=== PATIENT | female | born 1985 | race Caucasian/White ===

== ENCOUNTER → 2022-08-27 11:50 | Outpatient (CLI) | payer OTHER, SELFPAY ==
[2022-08-27 13:07] LABS: Add Manual Diff / Slide Review NO; Basophils Absolute Auto 100 /uL (0-100); Basophils Percent Auto 0.8 % (0-2); Eosinophils Absolute Auto 200 /uL (0-450); Eosinophils Percent Auto 1.8 % (2-4); Hematocrit 38.3 % (36-46); Hemoglobin 13.5 g/dL (12.0-16.0); Lymphocytes Absolute Auto 3100 /uL (1100-4500); Lymphocytes Percent Auto 27.1 % (25-40); Mean Corpuscular HGB Conc 35.1 % (30-36); Mean Corpuscular Hemoglobin 31.9 PG (26-34); Mean Corpuscular Volume 90.9 fL (80-100); Monocytes Absolute Auto 600 /uL (0-900); Monocytes Percent Auto 5.2 % (3-14); Neutrophils Absolute Auto 7500 /uL (1500-7000); Neutrophils Percent Auto 65.1 % (50-75); Platelet Count 367 X10^3/uL (150-400); Red Blood Cell Count 4.21 X10^6/uL (4.0-5.2); Red Cell Distribution Width 12.2 % (11.6-14.8); White Blood Cell Count 11.5 X10^3/uL (4.5-11.0)
[2022-08-27 13:19] LABS: Specimen Label NATERA
[2022-08-27 17:38] LABS: Hepatitis B Surface Antigen NEGATIVE s/c (NEGATIVE); Rubella Antibody IgG 60.4 IU/mL (>15)
[2022-08-27 17:53] LABS: HIV 1 & 2 Ab/Ag 4th Gen Combo NEGATIVE (NEGATIVE); Hep C Virus Ab w/Reflex Quant NEGATIVE s/c (NEGATIVE)
[2022-08-28 04:27] LABS: RPR Screen Non Reactive (Non Reactive)
[2022-08-28 09:09] LABS: Varicella IgG Antibody 261 index (Immune >165)
== END ==
PROVIDERS: Referring Provider Specialist; Visit Provider Specialist
DX: O09.521 Supervision of elderly multigravida, first trimester (principal); Z3A.00 Weeks of gestation of pregnancy not specified
CPT/HCPCS: 36415; 80055; 86787; 86803; 86850; 86900; 86901; 87086; 87389

== ENCOUNTER → 2022-10-20 14:33 | Outpatient (CLI) | payer OTHER, SELFPAY ==
[2022-10-23 19:36] LABS: AFP Value 38.2 ng/mL (.); Insulin Dep Diabetes No (.); OSBR Risk 1IN 10000 (.); Results Report (.); Test Results *Screen Negative* (.)
== END ==
PROVIDERS: Referring Provider Specialist; Visit Provider Specialist
DX: Z34.92 Encounter for supervision of normal pregnancy, unspecified, second trimester (principal); Z3A.18 18 weeks gestation of pregnancy
CPT/HCPCS: 36415; 82105

== ENCOUNTER → 2022-11-04 15:45 | Outpatient (CLI) | payer OTHER, SELFPAY ==
--- NOTE | 2022-11-04 15:46 | DI.US.S_ITS ---
PROCEDURE: US OB >= 14 WEEKS FETUS INDICATIONS: ANATOMY OUTSIDE/PRIOR DATING DATA: Last menstrual period (LMP): 06/16/2022 LMP-based estimated date of delivery (LIZBETH): 03/23/2023. First dating scan (date and location): 08/27/2022. Estimated date of delivery (LIZBETH) from first dating scan: 03/25/2023. TECHNIQUE: Real-time scanning was performed of the fetus, with image documentation and biometric measurements. COMPARISON: None. FINDINGS: General: A single living intrauterine gestation is present. Presentation: Breech. Placenta: Placental position is posterior , with low lying placenta 1.4 cm from the internal cervical os.. Amniotic fluid index: 11.5 cm, normal range is 5-24 cm. Single deepest vertical pocket is 4.3 cm. heart rate: 140 beats per minute. Maternal cervical canal: 3.7 cm long. Normal lower limit is 2.5 cm. biometrics: Biparietal diameter: 19 weeks 4 days Head circumference: 19 weeks 4 days Abdominal circumference: 19 weeks 5 days Femur length: 20 weeks 1 day Clinically estimated gestational age: 20 weeks 1 day Composite gestational age from present scan: 19 weeks 5 days Estimated weight and percentile: 33rd percentile Anatomic survey: Neuro: Ventricles are non-dilated at less than 10 mm. Cisterna magna is normal at 3-11 mm. Cerebellum is normal in size and morphology. Nuchal skin fold: Normal at less than 6 mm between 14-21 weeks gestational age. Face: Nose and lips, facial profile are normal. Spine: No evidence for spina bifida. Heart: 4-chambered heart is present, with normal ventricular outflow tracts. Diaphragm: Diaphragm is intact. Stomach: Left-sided stomach is present. Kidneys: No hydronephrosis. Normal is less than 5 mm in 2nd trimester, less than 7 mm in 3rd trimester. Cord: 2-vessel cord has orthotopic insertion. Bladder: Normal in size. Extremities: All 4 extremities identified. IMPRESSION: 1. Single living IUP redemonstrated and interval growth is normal. 2. 2 vessel cord; otherwise normal anatomy. 3. Low lying placenta. Recommend followup imaging for the above. We strive to produce accurate, complete, and clear reports of imaging services. To assist us in improving patient care, this report was composed using standard report templates and voice recognition software. Therefore, it may contain abnormal punctuation, insertions and/or omissions. Occasional wrong-word or sound-alike substitutions may occur. Though we review the report and make efforts to correct it, we do recommend that the report be read carefully in proper context to recognize any text inaccuracies. Dictated by: Domo MUNOZ Interpreted: Gabriel Holder MD on 11/04/2022 at 19:20 Transcribed by: SIDDHARTHA on 11/05/2022 at 8:07 Approved by: Gabriel Holder M.D. on 11/06/2022 at 8:19
== END ==
PROVIDERS: Referring Provider Specialist; Visit Provider Specialist
DX: O44.42 Low lying placenta NOS or without hemorrhage, second trimester (principal); Z3A.19 19 weeks gestation of pregnancy
CPT/HCPCS: 76811

== ENCOUNTER → 2022-12-22 09:26 | Outpatient (CLI) | payer OTHER, SELFPAY ==
[2022-12-22 11:41] LABS: GTT (PREG) 1 Hour PP 50gm Dose 158 mg/dL (76-139)
== END ==
PROVIDERS: Referring Provider Student in an Organized Health Care Education/Training Program; Visit Provider Student in an Organized Health Care Education/Training Program
DX: Z34.82 Encounter for supervision of other normal pregnancy, second trimester (principal); Z3A.26 26 weeks gestation of pregnancy
CPT/HCPCS: 36415; 82950; 85014; 85018

== ENCOUNTER → 2022-12-28 09:27 | Outpatient (CLI) | payer OTHER, SELFPAY ==
[2022-12-28 12:38] LABS: Glucose Tol Interp,Gestational INTERPRETATION
[2022-12-28 13:35] LABS: Glucose 2 Hour Gest 144 mg/dL (76-155)
[2022-12-28 14:24] LABS: Glucose 3 Hour Gest 148 mg/dL (76-140)
[2022-12-28 18:17] LABS: Glucose Fasting Gestational 88 mg/dL (76-95)
[2022-12-28 18:17] LABS: Glucose 1 Hour Gest 184 mg/dL (76-180)
== END ==
PROVIDERS: Referring Provider Student in an Organized Health Care Education/Training Program; Visit Provider Student in an Organized Health Care Education/Training Program
DX: O99.810 Abnormal glucose complicating pregnancy (principal)
CPT/HCPCS: 36415; 82951; 82952

== ENCOUNTER → 2023-01-27 09:34 | Outpatient (CLI) | payer OTHER, SELFPAY ==
--- NOTE | 2023-01-27 11:43 | DIAB.GDA ---
Addendum entered by Rosita Enrique 02/04/23 14:23: Called to review BG and see if any questions. LVM. Plans to f/u 1:1 next Original Note: Initial Gestational Diabetes Assessment Name: Marilyn Weinberg Date: 01/27/23 Time: 770-6030a Dx: Gestational Diabetes Provider: Esperanza LIZBETH: 03/23/22 Weeks: 32 Marilyn presents with partner, Franko for initial visit. Denies any personal or FH of DM or GDM. Reports cutting out soda x1 month. Has questions regarding pasta and cereal options/intake. High carb intake with some coffee beverage choices (40g+ per serving). Recently switched from sourdough bread to keto bread, which she does not enjoy. Diet Recall: 7am: cheese or 1-2 butter toast or sweetened cereal 9am; leftovers: steak with pasta x 0.5-1c R steak and 0.5c rice, 0.5c beans, veggies 2-3p: same or veggie straws 7-8p: same sn: nothing or toast or veggie straws Beverages: 2-3x 32oz water, zero sugar hydration, coffee sweetened Anthropometrics: Ht: 62-63 Wt: 197# 12/18 at OB Prepregnancy wt: 162# Physical Activity: Exercise ball stretches 1-2x per week Self-Monitoring Blood Glucose: Checking FBG and 2 hour pc. 02/13 elevated recent FBG and all but two in range postprandial readings. Attributes elevations to high carb intake. Date Pre Post Pre Post Pre Post HS 01/21 76 94 145 107 01/22 76 78 120 104 01/23 86 96 107 108 01/24 93 98 82 123 01/25 81 100 105 75 01/26 96 94 87 81 01/27 91 Diabetes Medications: None Pertinent Labs: screen 158 H 3hr: 88, 184H, 144, 148H Nutrition Rx: Carbohydrates: Meal: 45-60g lunch and dinner; 30g breakfast Snack: 15-30g Nutrition Diagnosis: Altered nutrition related lab value r/t GDM dx aeb recent OGTT Nutrition and food related knowledge deficit r/t new dx GDM aeb OGTT and pt report Physical inactivity r/t stage of change aeb pt report Intervention: This participant was very receptive. Provided appropriate educational handouts. Discussed the following topics: GDM pathophysiology and impact of hyperglycemia on mom and baby Risk for T2DM for mom and baby in the future Ways to reduce risk T2DM Plate Method, meal timing, carb counting, pairing macronutrients and spreading out CHO for better BG management Blood glucose goals (FBG: <95 and 2 hour <120 mg/dL); importance of checking 4x per day (FBG and pc) Impact of macronutrients on blood glucose Recommended servings for carbohydrates at meals and snacks Brainstormed appropriate meal plan based on her food preferences Reviewed OGTT labs Role of physical activity and following provider guidelines for safety Goals: Measure coffee creamer Have veggies at each meal Keep carbs to about 1c at meals Start walks Follow-up: JACK BURGESS follow-up in one week via messaging or phone and 2 weeks in person 1:1 Rosita Enrique RDN, JENIFER Certified Diabetes Care and Editor News T: [phone] F: [phone] [email or web address] Thank you for this referral
== END ==
PROVIDERS: Referring Provider Student in an Organized Health Care Education/Training Program; Visit Provider Student in an Organized Health Care Education/Training Program
DX: O24.410 Gestational diabetes mellitus in pregnancy, diet controlled (principal); Z3A.32 32 weeks gestation of pregnancy; Z71.3 Dietary counseling and surveillance
CPT/HCPCS: 97802

== ENCOUNTER → 2023-02-01 15:26 | Outpatient (CLI) | payer OTHER, SELFPAY ==
--- NOTE | 2023-02-01 15:28 | DI.US.S_ITS ---
PROCEDURE: US OB LIMITED INDICATIONS: GESTATIONAL DIABETES OUTSIDE/PRIOR DATING DATA: Last menstrual period (LMP): 06/16/2022. LMP-based estimated date of delivery (LIZBETH): 03/23/2023. First dating scan (date and location): 08/27/2022. Estimated date of delivery (LIZBETH) from first dating scan: 03/25/2023. The calculations are made using the clinical LIZBETH of 03/23/2023. TECHNIQUE: Real-time scanning was performed of the fetus, with image documentation and biometric measurements. Endovaginal scanning: Not performed COMPARISON: None. FINDINGS: General: A single living intrauterine gestation is present. Presentation: Vertex. Placenta: Placental position is right posterior , without previa. Amniotic fluid index: 10 cm, normal range is 5-24 cm. Single deepest vertical pocket is 5.4 cm. heart rate: 141 beats per minute. Maternal cervical canal: 3.2 cm long. Normal lower limit is 2.5 cm. biometrics: Biparietal diameter: 8.1 centimeters, 32 weeks 4 days Head circumference: 30.2 centimeters, 33 weeks 3 days Abdominal circumference: 28.5 centimeters, 32 weeks 4 days Femur length: 6.5 centimeters, 33 weeks 2 days Clinically estimated gestational age: 32 weeks 6 days Composite gestational age from present scan: 33 weeks 0 days Estimated weight and percentile: 2070 grams, 41st percentile Other: Not applicable. IMPRESSION: 1. Single live intrauterine consistent with 33 weeks 0 days. 2. Appropriate growth with estimated weight in the 41st percentile. 3. Inferior margin of placenta is now approximately 6 centimeters from the internal os. We strive to produce accurate, complete, and clear reports of imaging services. To assist us in improving patient care, this report was composed using standard report templates and voice recognition software. Therefore, it may contain abnormal punctuation, insertions and/or omissions. Occasional wrong-word or sound-alike substitutions may occur. Though we review the report and make efforts to correct it, we do recommend that the report be read carefully in proper context to recognize any text inaccuracies. Dictated by: Pramod Diez M.D. on 02/02/2023 at 9:19 Approved by: Pramod Diez M.D. on 02/02/2023 at 9:56
== END ==
PROVIDERS: Referring Provider Student in an Organized Health Care Education/Training Program; Visit Provider Student in an Organized Health Care Education/Training Program
DX: O24.410 Gestational diabetes mellitus in pregnancy, diet controlled (principal); O09.893 Supervision of other high risk pregnancies, third trimester; O99.213 Obesity complicating pregnancy, third trimester; Z3A.33 33 weeks gestation of pregnancy
CPT/HCPCS: 76815

== ENCOUNTER → 2023-02-08 08:59 | Outpatient (CLI) | payer OTHER, SELFPAY ==
--- NOTE | 2023-02-08 10:04 | DIAB.GDFU ---
Follow-up Gestational Diabetes Assessment Name: Marilyn Weinberg Provider: Esperanza LIZBETH: 03/23/22 Weeks: 34 Marilyn presents today for follow-up GDM visit. Reports most BG in goal with exception to high carb intake, which seems to occur more often at lunch time. Endorses keeping portions to about 1c for carbs at most meals. Incorporating veggies more often at meals, ie green beans. Also, adding fruit with protein as snacks, ie pb and apple. Avoiding starbucks sugar beverages right now. Measured coffee creamer, 2 tsp per cup. Has increased activity with walks since last visit. Reports leaking colostrum after getting out of shower. Bought collectors to have for baby for potential hypoglycemia. Provided contact info. Plans for one more after this one per report. Diet Recall: B: low carb bread, cheese, avocado, black coffee sn: half apple with pb L: half cup mac and cheese with spam and green beans sn: veggie straws D; 1c pasta with 3 meatballs Anthropometrics: Ht: 62-63 Wt: 197# 12/18 at OB Prepregnancy wt: 162# Physical Activity: walking 2x per week. Partner wants to start walking daily. Plans to do so. Self-Monitoring Blood Glucose: Checking FBG and 2 hour pc consistently. Some high lunch readings and 1 high dinner due to large portions, ie burrito or teriyaki chx with white rice and mac. Most hyperglycemia in the last two weeks is occurring at lunch. Date Pre Post Pre Post Pre Post HS 02/02 102 81 129 110 02/03 95 94 84 102 02/04 91 110 188 103 02/05 78 80 95 104 02/06 88 111 102 160 02/07 92 118 101 104 02/08 93 Diabetes Medications: None Pertinent Labs: screen 158 H 3hr: 88, 184H, 144, 148H Nutrition Rx: Carbohydrates: Meal: 45-60g lunch and dinner; 30g breakfast Snack: 15-30g Nutrition Diagnosis: Altered nutrition related lab value r/t GDM dx aeb recent OGTT Nutrition and food related knowledge deficit r/t new dx GDM aeb OGTT and pt report - improved Physical inactivity r/t stage of change aeb pt report- improved/in progress Excessive CHO intake r/t portions at eating out, especially lunch aeb diet recall and SMBG- new Intervention: This participant was very receptive. Provided appropriate educational handouts. Discussed the following topics: Recent blood sugar results and impact of food and hormones Discussed reduced portions at lunch and/or adding a walk after lunch Review of macronutrient recommendations during Benefits, resources, and nutrition for resources Reviewed risk of GDM with subsequent pregnancies recommendations for nutrition and physical activity recommendations for T2DM risk reduction OGTT at 6-12 weeks Checking blood sugars twice per week (goal: fasting <100 mg/dL and 2 hour pc <140 mg/dL) until 6 week check-up HgA1c q 1-3 years. Goals: Measure coffee creamer- met Have veggies at each meal- improved Keep carbs to about 1c at meals- improved/in progress Start walks- met If eating out/have higher CHO, walk after meal 10+ mins- new Start daily walks with partner safely- new Get 6 months HgA1c from PCP- new Follow-up: JACK BURGESS follow-up prn. Overall, Marilyn is managing BG well. Some high lunch readings, which we discussed. Encouraged her to call or message with questions or follow-up needs prn. She agreed to this plan. Rosita Enrique RDN, [facility] Certified Diabetes Care and Soaker Soda Worker T: [phone] F: [phone] [email or web address] Thank you for this referral
== END ==
PROVIDERS: Referring Provider Student in an Organized Health Care Education/Training Program; Visit Provider Student in an Organized Health Care Education/Training Program
DX: O24.419 Gestational diabetes mellitus in pregnancy, unspecified control (principal); Z3A.34 34 weeks gestation of pregnancy; Z71.3 Dietary counseling and surveillance
CPT/HCPCS: 97803

== ENCOUNTER → 2023-02-08 10:11 | Outpatient (CLI) | payer OTHER, SELFPAY | PROVIDERS: Visit Provider Obstetrics & Gynecology | DX: R82.998 Other abnormal findings in urine (principal); O24.419 Gestational diabetes mellitus in pregnancy, unspecified control; Z3A.34 34 weeks gestation of pregnancy; Z71.3 Dietary counseling and surveillance | CPT/HCPCS: 87086; 97803 ==

== ENCOUNTER → 2023-02-22 11:50 | Outpatient (CLI) | payer OTHER, SELFPAY ==
[2023-02-23 09:59] LABS: Strep Grp B PCR NEG for Grp B Strep
== END ==
PROVIDERS: Visit Provider Obstetrics & Gynecology
DX: Z34.83 Encounter for supervision of other normal pregnancy, third trimester (principal); Z3A.35 35 weeks gestation of pregnancy
CPT/HCPCS: 87653

== ENCOUNTER → 2023-03-02 10:55 | Outpatient (CLI) | payer OTHER, SELFPAY | PROVIDERS: Visit Provider Obstetrics & Gynecology | DX: R82.998 Other abnormal findings in urine (principal) | CPT/HCPCS: 87086 ==

== ENCOUNTER → 2023-03-08 13:32 | Outpatient (CLI) | payer OTHER, SELFPAY | PROVIDERS: Visit Provider Obstetrics & Gynecology | DX: R82.998 Other abnormal findings in urine (principal) | CPT/HCPCS: 87086 ==

== ENCOUNTER → 2023-03-15 10:13 | Outpatient (CLI) | payer OTHER, SELFPAY | PROVIDERS: Visit Provider Obstetrics & Gynecology | DX: R82.998 Other abnormal findings in urine (principal) | CPT/HCPCS: 87086 ==

== ENCOUNTER → 2023-12-20 08:29 | Outpatient (CLI) | payer OTHER, SELFPAY ==
--- NOTE | 2023-12-20 08:31 | DI.MRI.S_ITS ---
PROCEDURE: MR KNEE RT WO CON INDICATIONS: pain in right knee TECHNIQUE: Noncontrast sagittal PD fast spin echo and T2 fast spin echo with fat saturation, sagittal 3-D FLASH with fat saturation; coronal T1 spin echo and PD fast spin echo with fat saturation, and axial PD fast spin echo with fat saturation through the knee. COMPARISON: None. FINDINGS: Image quality: Excellent. Menisci: Subtle signal abnormality adjacent to posterior medial periphery of posterior horn medial meniscus with adjacent cystic area measures up to 8 x 4 mm in size concerning for subtle posterior medial meniscal tear with parameniscal cysts. The lateral meniscus is intact. The meniscal root ligaments appear intact. Cruciate ligaments: The anterior and posterior cruciate ligaments appear intact. Medial structures: The medial collateral ligament appears intact. Visualized portions of the pes anserinus tendons appear normal. No abnormal bursal fluid. Lateral structures: The lateral collateral ligament, long and short heads of the biceps femoris tendon appear intact. The popliteus tendon appears normal. Iliotibial band appears normal. Anterior structures: Distal quadriceps tendinosis at its superior patellar insertion is seen. The patellar tendon is intact.. Patellar alignment is normal. No femoral trochlear dysplasia or ventral trochlear prominence. No edema in the infrapatellar fat pad. Bones and cartilage: No bone marrow contusions or fractures. The cartilage of the medial and lateral femorotibial compartments appears normal in thickness. Moderate grade chondromalacia involving apex and medial facet of patella cartilage is seen. Joint space: There is small knee joint fluid. No Rodríguez's cyst. Normal appearing synovial plicae are incidentally noted. IMPRESSION: 1. 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 No marrow edema. No acute fracture or dislocation. Small joint effusion, no loose bodies. 2. Finding is concerning for subtle tear involving posterior and medial periphery of posterior horn medial meniscus with adjacent subcentimeter parameniscal cysts. No evidence of lateral meniscal tear. 3. Cruciate ligaments are intact. 4. Distal quadriceps tendinosis at its superior patellar insertion. Dictated by: Marco A Driver M.D. on 12/20/2023 at 13:00 Approved by: Marco A Driver M.D. on 12/20/2023 at 13:08
== END ==
LOC: MRI 08:30
DX: M22.41 Chondromalacia patellae, right knee (principal); M25.461 Effusion, right knee; M23.021 Cystic meniscus, posterior horn of medial meniscus, right knee; M25.561 Pain in right knee
CPT/HCPCS: 73721

== ENCOUNTER → 2024-06-25 15:21 | Outpatient (CLI) | payer OTHER, SELFPAY ==
[2024-06-25 22:10] LABS: Urine N gonorrhoeae NOT DETECTED
[2024-06-25 22:19] LABS: Urine Chlamydia NOT DETECTED
== END ==
LOC: LAB 15:22
PROVIDERS: Visit Provider Obstetrics & Gynecology
DX: Z11.3 Encounter for screening for infections with a predominantly sexual mode of transmission (principal); Z3A.01 Less than 8 weeks gestation of pregnancy
CPT/HCPCS: 87491; 87591

== ENCOUNTER → 2024-07-27 12:20 | Outpatient (CLI) | payer OTHER, SELFPAY ==
[2024-07-27 13:34] LABS: Natera Collection Specimen Collected
[2024-07-27 14:05] LABS: Add Manual Diff / Slide Review NO; Basophils Absolute Auto 0 /uL (0-100); Basophils Percent Auto 0.6 % (0-2); Eosinophils Absolute Auto 200 /uL (0-450); Eosinophils Percent Auto 2.8 % (2-4); Hematocrit 38.6 % (36-46); Hemoglobin 13.3 g/dL (12.0-16.0); Lymphocytes Absolute Auto 2700 /uL (1100-4500); Lymphocytes Percent Auto 31.4 % (25-40); Mean Corpuscular HGB Conc 34.3 % (30-36); Mean Corpuscular Hemoglobin 31.4 PG (26-34); Mean Corpuscular Volume 91.3 fL (80-100); Monocytes Absolute Auto 600 /uL (0-900); Monocytes Percent Auto 6.4 % (3-14); Neutrophils Absolute Auto 5100 /uL (1500-7000); Neutrophils Percent Auto 58.8 % (50-75); Platelet Count 316 X10^3/uL (150-400); Red Blood Cell Count 4.23 X10^6/uL (4.0-5.2); Red Cell Distribution Width 12.5 % (11.6-14.8); White Blood Cell Count 8.6 X10^3/uL (4.5-11.0)
[2024-07-27 14:18] LABS: Hemoglobin A1C% w Est Avg Glu 5.1 % (4.0-6.0)
[2024-07-28 14:59] LABS: Hepatitis B Surface Antigen NEGATIVE s/c (NEGATIVE); Rubella Antibody IgG 69.5 IU/mL (>15)
[2024-07-28 15:10] LABS: HIV 1 & 2 Ab/Ag 4th Gen Combo NEGATIVE (NEGATIVE); Hep C Virus Ab w/Reflex Quant NEGATIVE s/c (NEGATIVE)
[2024-07-29 09:36] LABS: Varicella IgG Antibody Reactive (Non Reactive)
== END ==
PROVIDERS: Referring Provider Obstetrics & Gynecology; Visit Provider Obstetrics & Gynecology
DX: O09.521 Supervision of elderly multigravida, first trimester (principal); O09.299 Supervision of pregnancy with other poor reproductive or obstetric history, unspecified trimester; Z3A.12 12 weeks gestation of pregnancy; Z86.32 Personal history of gestational diabetes
CPT/HCPCS: 36415; 80055; 83036; 86787; 86803; 86850; 86900; 86901; 87389

== ENCOUNTER → 2024-08-21 09:44 | Outpatient (CLI) | payer OTHER, SELFPAY ==
[2024-08-24 19:39] LABS: Gest Age on Col Date 15.0 weeks (.); OSBR Risk 1IN 10000 (.)
== END ==
PROVIDERS: Referring Provider Obstetrics & Gynecology; Visit Provider Obstetrics & Gynecology
DX: Z34.82 Encounter for supervision of other normal pregnancy, second trimester (principal); Z3A.15 15 weeks gestation of pregnancy
CPT/HCPCS: 36415; 82105

== ENCOUNTER → 2024-10-29 10:30 | Outpatient (CLI) | payer OTHER, SELFPAY ==
[2024-10-29 12:56] LABS: Hematocrit 34.4 % (36-46); Hemoglobin 12.1 g/dL (12.0-16.0)
[2024-10-29 13:02] LABS: GTT (PREG) 1 Hour PP 50gm Dose 118 mg/dL (76-139)
== END ==
PROVIDERS: Referring Provider Obstetrics & Gynecology; Visit Provider Obstetrics & Gynecology
DX: Z34.82 Encounter for supervision of other normal pregnancy, second trimester (principal); Z3A.24 24 weeks gestation of pregnancy; Z34.90 Encounter for supervision of normal pregnancy, unspecified, unspecified trimester
CPT/HCPCS: 36415; 82950; 85014; 85018; 87077; 87086

== ENCOUNTER → 2024-12-10 08:34 | Outpatient (CLI) | payer OTHER, SELFPAY ==
--- NOTE | 2024-12-10 08:35 | DI.US.S_ITS ---
PROCEDURE: US OB FOLLOW UP INDICATIONS: previous Low lying placenta- reassess for resolution OUTSIDE/PRIOR DATING DATA: Last menstrual period (LMP): 05/04/2024. LMP-based estimated date of delivery (LIZBETH): 02/06/2025. First dating scan (date and location): 06/25/2024. Estimated date of delivery (LIZBETH) from first dating scan: 02/06/2025. TECHNIQUE: Real-time scanning was performed of the fetus, with image documentation and biometric measurements. Endovaginal scanning: Not performed. COMPARISON: [facility], , OB >= 14 WEEKS FETUS, 09/27/2024, 8:39. FINDINGS: General: A single living intrauterine gestation is present. Presentation: Breech position. Placenta: Placental position is posterior fundal , without previa. Normal >2 cm. Low lying is <2 cm to the edge. Previa covers the internal os. Amniotic fluid index: 13.6 cm, normal range is 5-24 cm. Single deepest vertical pocket is 4.7 cm. heart rate: 141 beats per minute. Maternal cervical canal: 3.9 cm long. Normal lower limit is 2.5 cm. Report any funneling of internal cervical os: % of canal length, shape (U or V), width or any U-shaped funneling. biometrics: Not performed. Other: Not applicable. IMPRESSION: Central intra area in in the breech position. heart rate of 141 beats per minute. BENEDICTO of 13.6 cm. Posterior fundal placenta without evidence of previa on the current study. No biometry was performed. We strive to produce accurate, complete, and clear reports of imaging services. To assist us in improving patient care, this report was composed using standard report templates and voice recognition software. Therefore, it may contain abnormal punctuation, insertions and/or omissions. Occasional wrong-word or sound-alike substitutions may occur. Though we review the report and make efforts to correct it, we do recommend that the report be read carefully in proper context to recognize any text inaccuracies. Dictated by: Daiana Don M.D. on 12/10/2024 at 10:59 Approved by: Daiana Don M.D. on 12/10/2024 at 11:06
== END ==
LOC: US 08:34
PROVIDERS: Referring Provider Obstetrics & Gynecology; Visit Provider Obstetrics & Gynecology
DX: O44.43 Low lying placenta NOS or without hemorrhage, third trimester (principal); O34.219 Maternal care for unspecified type scar from previous cesarean delivery; Z3A.28 28 weeks gestation of pregnancy
CPT/HCPCS: 76816

== ENCOUNTER → 2025-01-11 09:55 | Outpatient (CLI) | payer OTHER, SELFPAY ==
[2025-01-12 11:53] LABS: Strep Grp B PCR NEG for Grp B Strep
== END ==
PROVIDERS: Visit Provider Obstetrics & Gynecology
DX: Z36.85 Encounter for antenatal screening for Streptococcus B (principal)
CPT/HCPCS: 87653

== ENCOUNTER 2025-02-04 09:52 | Inpatient (IN) | payer OTHER, SELFPAY ==
--- NOTE | 2025-02-04 | PATH_ITS ---
[facility] Accession Number: [id number] No. of containers..01 Tissue . 01 Material submitted: . fallopian tube - BILATERAL FALLOPIAN TUBES . 01 Diagnosis: BILATERAL FALLOPIAN TUBES, BILATERAL SALPINGECTOMY: Fimbriated fallopian tubes with rare benign paratubal cyst, otherwise unremarkable, full cross sections. Negative for malignancy. [facility] 02/06/2025 1547 Local . 01 Electronically signed: . Mary Galvan DO, Pathologist NPI- [id number] . 01 Gross description: . Received in formalin with two patient identifiers and bilateral fallopian tubes, are bilateral undesignated fallopian tubes. The first fallopian tube is 7.5 cm long by 0.5 cm in diameter. The second fallopian tube is 9.8 cm long by 0.6 cm in diameter. The serosa is brown and dusky. The cut surfaces are congested with pinpoint lumens. There is a separate 0.9 cm paratubal cyst within the container. Teacher Asst sections are submitted as follows: A1: First fallopian tube with entire bisected fimbriated end and entire separate paratubal cyst. B2: Second fallopian tube with entire bisected fimbriated end. ([id number]) /KATYA 02/05/2025 0838 Local . 01 Pathologist provided ICD-10: O34.219 . 01 CPT . 812432 Specimen Comment: A courtesy copy of this report has been sent to [facility] Pathology Performed at: [address] [id number] MD Jerry Jack MD Phone: [phone]
--- NOTE | 2025-02-04 08:51 | PM.OBHP.IH.1 ---
OB HPI Date/Time Date of admission: 02/04/25 Date Patient Seen: 02/04/25 Time Patient Seen: 08:51 History of Present Condition Chief complaint: Section/GET TRI CONS LIZBETH Calculator Estimated Delivery Date Method Current WG Current Estimate 02/08/25 Conception 39w 3d Other Estimates 02/06/25 LMP (Certain) 39w 5d 02/08/25 Ultrasound #1 39w 3d Estimated Gestational Age (weeks): 39w3d : 3 Para: 2 Narrative: Patient is a 39yo @ 39w3d presents for scheduled repeat with bilateral salpingectomy. no complaints. good moevment. care: good care Dating criteria OB: LMP confirmed by 1st trimester US Ultrasounds: normal mid trimester US Obstetrical complications: none Medical complications OB: none Indications Operative indications ( section): previous uterine surgery Other reason(s) for admission: Previous x 2, desires permanent sterilization Preadmission Labs Last OB Lab Results: Blood Type O Positive Today, 08:30 Antibody Screen Negative Today, 08:30 Hct, (36-46) 38.2 % Today, 08:30 Hgb, (12.0-16.0) 13.5 g/dL Today, 08:30 Hep Bs Antigen, (NEGATIVE) Negative s/c 07/27/24, 12:34 Hepatitis C Antibody, (NEGATIVE) Negative s/c 07/27/24, 12:34 Rubella Antibody, (>15) 69.5 IU/mL 07/27/24, 12:34 VZV IgG Antibody, (Non Reactive) Reactive 07/27/24, 12:34 Glucose 1 Hr 50 gm, (76-139) 118 mg/dL 10/29/24, 11:38 Hemoglobin A1c, (4.0-6.0) 5.1 % 07/27/24, 12:34 Group B Strep (PCR) Neg for grp b strep 01/11/25, 09:45 -: Chlamydia screen: negative and Gonorrhea screen: negative Prior (ies) Past Pregnancies Del. Date GA/Weeks Labor Lgth Wt Sex Route Outcome Anesthesia Place Delv Breastfeed Preg Comp Name 12/13/05 39 36 Female vaginal live - full term epidural [facility] 3 months Elif 03/19/23 39.3 60 7 lb 14 oz Male live - full term epidural IH Still going as of 06/19/24 Jean Delivery Date: 12/13/05 Last Updated by: Brea Anders RN polyhydramnios Delivery Date: 03/19/23 Last Updated by: Brea Anders RN 2-vessel cord Hx # Term Pregnancies: 3 Number of Living Children: 2 [facility] Medical History (Updated 11/16/24 @ 08:49 by Lynsey Bauer DO) Gestational diabetes mellitus, class A1 Obesity affecting in second trimester Two vessel umbilical cord in schrader , antepartum COVID-19 Wrist fracture Carpal tunnel syndrome on right Strep throat Elbow fracture Surgical History (Updated 09/28/24 @ 05:42 by Mady Wiley MD) H/O elbow surgery H/O right wrist surgery History of tonsillectomy [place] teeth extracted H/O LEEP (~2016) Family History (Updated 06/15/24 @ 10:50 by Brea Anders RN) Grandmother Breast cancer Mother Family estrangement Grandmother Brain tumor Father Heart disease H/O heart artery stent Grandfather Prostate cancer Family/Other Spina bifida Gastroschisis Daughter Congenital hypothyroidism Social History marital status: unmarried,living together number of children: 2 (daughter lives w/ her father in [place]) household members: significant other and friend(s) lives independently: Yes caregiver/support person: Yes housing: house pets and animals: Yes (cat, chickens) education level: college (associate's degree, working on bachelor's) occupational status: employed (active duty ordinanceman ) current occupational exposures/hazards: No (no Hazmat duties since becoming ) special lia needs: No travel history: over 6 months ago seatbelt use: always helmet use: Yes water heater temp set < 120 deg: Yes working smoke detector in home: Yes fire extinguisher in home: Yes carbon monox detector in home: Yes firearms in home: No do you feel safe at home: Yes Tobacco: How many years used: 9 (3 years cigarettes, 6 years vaping) quit status: has quit before second hand exposure: No alcohol intake: former (stopped entirely prior to 2nd ; previously very heavy drinker) substance use type: does not use (as a teen) during the past year weight has: other (back to pre- weight at conception) well-balanced diet: rarely or never daily servings fruits/ve-1 (1-2) caffeine: Yes (1-2 cups coffee in AM) Type(s) of exercise: walking and other (active w/ small child, property maintenance) Meds Home Medications and Allergies Home Medications ?Medication ?Instructions ?Recorded ?Confirmed ?Type prenat.vits,jesus,oan-djzx-yxoos 1 tab PO DAILY 08/13/22 01/29/25 History blood-glucose meter (Blood Glucose #1 ea 12/29/22 01/29/25 Rx Monitoring kit) lancets #100 ea 12/29/22 01/29/25 Rx blood sugar diagnostic (Blood #200 ea 01/05/23 01/29/25 Rx Glucose Test strips) breast pump #1 ea 01/05/23 01/29/25 Rx acyclovir 800 mg tablet 800 mg PO BID #30 tabs 03/15/23 01/29/25 Rx valacyclovir 500 mg tablet 500 mg PO DAILY #30 tabs 09/27/24 01/29/25 Rx (Valtrex) aspirin 81 mg tablet 81 mg PO DAILY 11/16/24 01/29/25 History RSVPreF3 antigen-AS01E 0.5 ml IM ONCE mother #1 12/14/24 01/29/25 Rx adjuvant(PF) 120 mcg/0.5 mL IM ea suspension, kit fluconazole 150 mg tablet 150 mg PO ONCE #1 tab 01/21/25 01/29/25 Rx Allergies Allergy/AdvReac Type Severity Reaction Status Date / Time No Known Drug Allergies Allergy Unverified 01/29/25 12:00 Review of Systems Review of Systems ROS: Yes All systems reviewed with the patient and are negative except as otherwise documented OB Exam HENMT Head: normal to inspection Resp Effort & Inspection: normal respiratory effort and able to speak in complete sentences Auscultation: clear to auscultation bilaterally Cardio Rate: regular rate Rhythm: regular rhythm Heart Sounds: no murmurs GI Inspection: normal to inspection Palpation: Yes soft Objective Labs 02/04/25 08:30 Assessment and Plan Assessment and Plan Assessment and Plan narrative: Patient is a 39yo @ 39w3d presents for scheduled repeat and BS 1. Scheduled repeat - admit to L&D -CEFM, (IVF, NPo - Ancef 2gm IV prior to incision - reviewed risks of including bleeding, pain, infection, injury to surrounding organs/tissues includign the bladder, bowel, ureters, r eviewed technique for bilateral salpingectomy-- reviewed permanent nature of procedure-- all questions answered- desires to proceed with surgery - anesthesia aware - FHTs category 1 0 will proceed to OR when ready Time-Based Coding :: [TOTAL MINUTES] spent with patient and on the chart (including review of chart, obtaining history, exam, reviewing outside data, placing orders, documenting exam and treatment plan, and counseling patient) on [DATE].
[2025-02-04 09:11] LABS: Add Manual Diff / Slide Review NO; Hematocrit 38.2 % (36-46); Hemoglobin 13.5 g/dL (12.0-16.0); Lymphocytes Absolute Auto 1800 /uL (1100-4500); Mean Corpuscular HGB Conc 35.2 % (30-36); Mean Corpuscular Hemoglobin 32.2 PG (26-34); Mean Corpuscular Volume 91.5 fL (80-100); Platelet Count 187 X10^3/uL (150-400)
[2025-02-04] MEDS: CITRIC ACID/SODIUM CITRATE 15 ML SOLUTION 30 ML PO (09:21)
[2025-02-04] MEDS: LACTATED RINGERS 1,000 ML 42 ML IV (09:23)
--- OUTSIDE RECORDS SUMMARY | 2025-02-04 09:56 | XMS_ITS | Clinical Summary ---
Author Organization [facility] Address [address] [place] [address] Care Team Providers Care Platen Grinder Name Role Phone Unavailable Primary Care Provider Unavailabl e Social History Tobacco Use Types Packs/Day Years Used Date Smoking Tobacco: Never Assessed Comments Unknown Sex and Gender Information Value Date Recorded Sex Assigned at Not on file Legal Sex Female 12:55 PM PST Gender Identity Not on file Sexual Orientation Not on file Plan of Treatment Health Maintenance Due Date Last Done Comments Depression Screening (PHQ-2) 1998 IPV Vaccines (2 of 3 - Adult catch-up series) 11/23/2004 10/26/2004 Hepatitis A Vaccines (2 of 2 - 2-dose series) 11/04/2006 05/04/2006, 11/27/2004, 10/26/2004 HPV Vaccines (1 - 3-dose SCDM series) 2013 DTaP,Tdap,and Td Vaccines (2 - Tdap) 05/09/2014 05/08/2014, 10/26/2004 Cervical Cancer Screening Combined Topic 2016 Cervical Cancer-Pap screening 2016 HPV/Cotest 2016 COVID-19 Vaccine ( season) 2024 03/16/2021, 09/15/2020, 08/14/2020 Influenza Vaccine (#1) 2024 , 10/28/2022, 10/31/2018, Additional history exists RSV Patients Over 60 years OR qualifying ( Patients) (1 - 1-dose 75+ series) 2061 MMR Vaccines Completed 10/26/2004 Varicella Vaccines Completed 11/27/2004, 1 , 10/26/2004 Hepatitis B Vaccines Completed 05/04/2006, 11/27/2004, 10/26/2004 HM Pneumococcal Combined Age 0-49 Aged Out No longer eligible based on patient's age to complete this topic Insurance
[2025-02-04 10:00] VITALS: BP 134/79
--- NOTE | 2025-02-04 10:12 | PM.PREOP ---
Pre-operative Note COVID-19 COVID-19 status: Not tested Interval Note History & Physical reviewed/Exam performed by Physician: Yes Changes to H&P: No ASA Class (for procedural sedation): II
--- NOTE | 2025-02-04 10:35 | SUR.OPER ---
Supine on padded OR bed, head on pillow, arms secured on padded arm boards at <90 degrees abduction, legs uncrossed, safety belt at thigh, tape over blanket over lower legs.
--- NOTE | 2025-02-04 10:58 | PM.AN.REGBLK ---
Regional Block Pre-procedure Labs: Hct 38.2 % (36-46) 02/04/25 08:30 Plt Count 187 X10^3/uL (150-400) 02/04/25 08:30 Medications: Current Medications Generic Name Dose Route Start Last Admin Trade Name Gwen PRN Reason Stop Dose Admin Carboprost Tromethamine 250 mcg 02/04/25 09:53 Carboprost 250 Mcg/Ml Ampul IM Q90M PRN Bleeding Citric Acid/Sodium Citrate 30 ml 02/04/25 09:00 02/04/25 09:21 Citric Acid/Sodium Citrate 15 Ml Solution PO 30 ml NOW MARGARITA Administration Lactated Ringer's 1,000 mls @ 42 mls/hr 02/04/25 08:15 02/04/25 09:23 Lactated Ringers IV 42 mls/hr CONT MARGARITA Administration Oxytocin/Lactated Ringer's 30 unit in 500 mls @ 200 mls/hr 02/04/25 08:50 Oxytocin Premix IV CONT PRN Bleeding Protocol Oxytocin/Lactated Ringer's 30 unit in 500 mls @ 200 mls/hr 02/04/25 09:53 Oxytocin Premix IV CONT PRN Bleeding Protocol Tranexamic Acid 1,000 mg/ 100 mls @ 600 mls/hr 02/04/25 09:53 Sodium Chloride IV NOW PRN Bleeding Lactated Ringer's 1,000 mls @ 100 mls/hr 02/04/25 10:00 Lactated Ringers IV 02/04/25 19:44 CONT MARGARITA Lidocaine HCl 20 ml 02/04/25 09:53 Lidocaine 1% 20 Ml INJ INTRA-OP PRN Post Delivery Methylergonovine Maleate 0.2 mg 02/04/25 09:53 Methylergonovine 0.2 Mg Tablet PO Q6HR PRN Heavy Bleeding Methylergonovine Maleate 0.2 mg 02/04/25 09:53 Methylergonovine 0.2 Mg/Ml Vial IM NOW PRN Bleeding Mineral Oil 30 ml 02/04/25 09:53 Mineral Oil 30 Ml Udc TOP PRN PRN Version Misoprostol 800 mcg 02/04/25 09:53 Misoprostol 200 Mcg Tablet MT NOW PRN Bleeding Misoprostol 400 mcg 02/04/25 09:53 Misoprostol 200 Mcg Tablet SL NOW PRN Bleeding Naloxone HCl 0.2 mg 02/04/25 09:53 Naloxone 0.4 Mg/Ml Vial IV Q2MIN PRN Opiate Reversal Oxytocin 10 unit 02/04/25 08:50 Oxytocin 10 Unit/Ml Vial IM NOW PRN Bleeding Oxytocin 10 unit 02/04/25 09:53 Oxytocin 10 Unit/Ml Vial IM NOW PRN Bleeding Allergies: Allergies Allergy/AdvReac Type Severity Reaction Status Date / Time No Known Drug Allergies Allergy Unverified 01/29/25 12:00
--- NOTE | 2025-02-04 11:25 | SUR.OPER ---
t-[id number] [facility]-[id number]
[2025-02-04 11:50] VITALS: BP 107/59; PULSE 74; RESP 13; TEMP 36.2; O2SAT 98
--- NOTE | 2025-02-04 11:55 | PM.OBCS.1 ---
Operative Date/Time/Diagnoses Date of procedure: 02/04/25 Time of procedure: 11:03 Pre-op diagnosis: IUP @ 39wks Previous x 1, declines TOLAC desires permanent sterilization Post-op diagnosis: same Procedure & Clinicians Procedure: Repeat Low Transverse section + Bilateral salpingectomy Same procedure(s) as scheduled: Yes Indications: Patient is a 39yo @ 39w3d presents for scheduled repeat . She declines TOLAC and confirms that she has completed childbearing and desires to proceed with permanent sterilization. Surgeon: Lynsey Bauer Click Yes if Unassisted: No Collarette Separator: Yousif Quiñones Reason for Collarette Separator: Collarette Separator needed for timely, efficient and safe delivery of infant with fundal pressure and retraction and further assistance to complete the procedure. Anesthesia Type: Spinal Operative Notes Findings: viable female infant, apgars- 8/9. clear amniotic fluid, normal 3VC intact placenta, normal tubes and ovaries bilaterally Closure Type: primary Specimen(s): tubes/segments of tubes Intraoperative meds administered: Ketorolac Applied: Catheter Estimated Blood Loss (mL): 640 Blood products transfused: none Procedure in detail: Under Spinal anaesthetic with a odom catheter inserted, the patient was prepped and draped in the usual sterile fashion in the supine position with a leftward tilt. A Pfannenstiel skin incision was made. The incision was carried down to the fascia with sharp dissection and cautery. The fascia was incised transversely and dissected off the rectus muscle using blunt and sharp dissection. Electrocautery was used for hemostasis. The peritoneum was opened taking care not to injure the bladder. The vesicouterine peritoneum was dissected off the lower uterine segment. The lower segment was assessed and a low transverse incision was made. The uterine incision was extended bluntly in cephalocaudad direction. The fetus was presenting as vertex. The head was delivered without difficulty and the rest of the body followed easily. After one minute of delayed cord clamping, the cord was clamped twice and cut and the baby transferred to the warmer, awaiting the nursing staff. The placenta was then delivered spontaneously with assistance. The uterus was exteriorized and explored and cleared of all clots and debris. The uterine incision was then closed in a single layer of locking 0-vicryl suture. Tubes and ovaries were examined and appeared normal. The right fallopian tube was grasped with a aida and excised along the mesosalpinx from the fimbriated end to the uterine cornua using the ligasure device. The same procedure was performed on the left fallopian tube. Both tubes sent to pathology. The muscle was approximated with 2-0 vicryl with interrupted suture. The fascia was closed using 0- vicryl in a running unlocked fashion. The subcutaneous adipose was approximated with 3-0 Chromic with interrupted stitches. The skin was then re approximated with a running monocryl subcuticular suture. At the end of the procedure all sponges, instruments, and sharps were counted and correct. Estimated blood loss was 640 ml. The patient and baby were taken to the recovery in stable condition. Complications: none Post-operative Condition: stable Disposition: PACU Aftercare: routine postop
[2025-02-04 11:57] VITALS: BP 107/60; PULSE 71; RESP 10; O2SAT 98
[2025-02-04 12:00] VITALS: BP 104/61; PULSE 80; RESP 16; O2SAT 98
[2025-02-04 12:05] VITALS: BP 104/60; PULSE 69; RESP 10; O2SAT 98
[2025-02-05 06:28] LABS: Add Manual Diff / Slide Review NO; Hematocrit 38.5 % (36-46); Hemoglobin 13.1 g/dL (12.0-16.0); Lymphocytes Absolute Auto 1600 /uL (1100-4500); Mean Corpuscular HGB Conc 34.0 % (30-36); Mean Corpuscular Hemoglobin 31.5 PG (26-34); Mean Corpuscular Volume 92.6 fL (80-100); Platelet Count 158 X10^3/uL (150-400)
[2025-02-05] MEDS: KETOROLAC 30 MG/ML VIAL IV (07:21)
--- NOTE | 2025-02-05 15:12 | P.DS_ITS ---
Discharge Providers Provider Date of admission: 02/04/25 09:52 Discharge Date: 02/05/25 Primary care physician: Surendra ONEILL Provider Consults: 02/04/25 09:37 Consult to Anesthesiology Urgent Comment: Consulting Provider: Gerber Grier Reason for consultation: Epidural 02/04/25 11:51 Consult to Geotechnicial Properties Technician Routine Comment: Discharge provider: Lynsey Bauer DO Summary Hospital Course Date Patient Seen: 02/05/25 Time Patient Seen: 15:12 Diagnoses: Repeat with bilateral salpingectomy, single live Hospital Course: Patient is a 39yo at 39wks presented to L&D for scheduled repeat with bilateral salpingectomy. She had an uncomplicated surgery and post op recovery. baby healthy in room and without difficulty. pain controlled with PO ibuprofen. Discharged home on POD #1. Peripartum Data Infant Delivery Method: Section Procedures: RLTCS + bilateral salpingectomy complications: none Status at Discharge Cognitive/behavioral status at discharge: oriented Functional status at discharge: independent ambulation Overall status at discharge: patient is progressing back to baseline Time Spent with Patient Time attestation: Total time spent providing and/or coordinating discharge services: Time spent: Less than 30 minutes Objective Labs 02/05/25 06:09 Labs: Laboratory Results - last 24 hr 02/05/25 06:09 WBC 11.3 H RBC 4.15 Hgb 13.1 Hct 38.5 MCV 92.6 MCH 31.5 MCHC 34.0 RDW 14.1 Plt Count 158 Neut % (Auto) 78.5 H Lymph % (Auto) 14.2 L Wilcox % (Auto) 6.4 Eos % (Auto) 0.4 L Baso % (Auto) 0.5 Neut # (Auto) 8900 H Lymph # (Auto) 1600 Wilcox # (Auto) 700 Eos # (Auto) 0 Baso # (Auto) 100 Exam Vital Signs (past 8 hours): Oxygen Delivery Method Room Air Narrative Exam Narrative: General- AAO x 3, NAD abdomen- soft, nondistended - incision- intact, no drainage or erythema LE- trace edema Discharge Plan Discharge Plan Patient Disposition: Home Discharge orders & Medications Prescriptions: Discontinued (DME) lancets Misc See Rx Instructions .ROUTE .MEDSUPPLY Qty: 100 3RF Rx Instructions: Blood sugar 4x daily Fasting and 2 hours after each meal (DME) blood-glucose meter [Blood Glucose Monitoring] Kit See Rx Instructions .ROUTE .MEDSUPPLY Qty: 1 0RF Rx Instructions: To use with testing fasting and 2 hr PP blood sugars (DME) Blood Glucose Test Strip See Rx Instructions .ROUTE .MEDSUPPLY Qty: 200 2RF Rx Instructions: Test blood sugar 4x daily fasting and 2 hours after each meal (DME) breast pump Device See Rx Instructions .ROUTE .MEDSUPPLY Qty: 1 0RF Rx Instructions: As directed aspirin 81 mg tablet 81 mg PO DAILY prenat.vits,jesus,[id number] Tablet 1 tab PO DAILY acyclovir 800 mg tablet 800 mg PO BID Qty: 30 0RF Follow up/Referrals: Lynsey Bauer DO [Physician, Gynecology] - 02/12/25 10:15 am Referral Note: Please follow up with Dr. Bauer for your one week incision check and then again on 03/19/2025 at 10:15 for your six week check. Please arrive 15 minutes early to your scheduled appointments. Thank you! :) Diet/Activity/Treatments Diet: Regular Activity: pelvic rest x 6 weeks Skin/Wound/Dressing Care Report to your healthcare provider any signs of infection, such as:: chills, fever, increased pain, unusual drainage and unusual redness Visit Report/Discharge Packet Instructions: DI for Hemorrhage, Fitness, DI for Depression Stand Alone Forms: Discharge: Care, [employer], Patient Portal/API, Stroke Signs & Symptoms, Influenza Vaccine Info, Notice of Privacy Practices, Inpatient vs Outpatient, Pneumococcal Vaccine Info, Pt. Rights & Responsibilities Discharge Data Primary Care Provider: ProviderSurendra
== END 2025-02-05 15:20 | disposition home or self-care (01) | DRG 785 ==
PROVIDERS: Admitting Provider Obstetrics & Gynecology; Referring Provider Obstetrics & Gynecology; Visit Provider Obstetrics & Gynecology
PROC: 10D00Z1 Extraction of Products of Conception, Low, Open Approach (ICD-10-PCS; CPT 59514; principal; 2025-02-04 10:00)
DX: O34.211 Maternal care for low transverse scar from previous cesarean delivery (principal); Z3A.39 39 weeks gestation of pregnancy; Z37.0 Single live birth; Z30.2 Encounter for sterilization; Z67.40 Type O blood, Rh positive
CPT/HCPCS: 36415; 59050; 85025; 86850; 86900; 86901; J0689; J1885; J2405; J7120